=== PATIENT | female | born 1940 | race Caucasian/White ===

== ENCOUNTER 2019-06-07 15:32 | Inpatient (IN) | payer MEDICARE ==
[~2019-06-07] VITALS: Ht 157.5 cm; Wt 62.2 kg
[~2019-06-07 15:32] MED LIST: AMLO-97 PO; ATOR40TA69 PO; BETH25 PO; CARV3.12 PO; ESTR-7 PO; FERS325 PO; FOLI0.8C PO; GLUC1CAP36 PO; LEVO75TA6 PO; OMEP-50 PO
[2019-06-07 16:31] LABS: BASOPHILS % (AUTO) 0.5 % (0.0-5.0); EOSINOPHILS % (AUTO) 1.1 % (0.0-8.0); LYMPHOCYTES % (AUTO) 13.2 % (21.0-51.0); MEAN CORPUSCULAR HGB CONC 32.7 g/dL (32.0-36.0); MEAN CORPUSCULAR VOLUME 94.8 fL (79-99); MONOCYTES % (AUTO) 11.7 % (3.0-13.0); NEUTROPHILS % (AUTO) 73.5 % (40.0-77.0); NUCLEATED RED BLOOD CELLS 0.1 % (0.0-0.19); PLATELET COUNT (AUTO) 218 K/uL (130-400); RED BLOOD CELL COUNT(AUTO) 2.19 MIL/uL (4.00-5.50); RED CELL DISTRIBUTION WIDTH 17.5 % (11.0-15.5)
[2019-06-07 16:41] LABS: CREATININE 0.8 mg/dL (0.5-1.5); POTASSIUM 4.1 mmol/L (3.5-5.1)
[2019-06-07 16:46] LABS: ALBUMIN 3.4 g/dL (3.5-5.0); BILIRUBIN,TOTAL 0.2 mg/dL (0.2-1.0); TOTAL PROTEIN, SERUM 5.7 g/dL (6.0-8.3)
[2019-06-07 16:52] LABS: HEMATOCRIT 20.8 % (36-48)
[2019-06-07 16:56] LABS: INR 0.96 (0.85-1.15); PARTIAL THROMBOPLASTIN TIME 26.1 SEC (26.3-35.5); PROTHROMBIN TIME 10.1 SEC (9.6-11.6)
[2019-06-07] MEDS ORDERED: SODIUM CHLORIDE 0.9% 250 ML IV ONE (18:41)
[2019-06-07] MEDS ORDERED: VWF IV ONE (20:45)
[2019-06-07] MEDS ORDERED: ANTIHEMOPHILIC FACTOR IV ONE (20:45)
[2019-06-08] VITALS (7 sets, daily range): BP systolic 116–137; BP diastolic 47–74
[2019-06-08 00:11] LABS: BASOPHILS % (AUTO) 0.5 % (0.0-5.0); EOSINOPHILS % (AUTO) 1.4 % (0.0-8.0); LYMPHOCYTES % (AUTO) 17.5 % (21.0-51.0); MEAN CORPUSCULAR HEMOGLOBIN 30.3 pg (27.0-33.0); MEAN CORPUSCULAR HGB CONC 33.8 g/dL (32.0-36.0); MEAN CORPUSCULAR VOLUME 89.8 fL (79-99); MONOCYTES % (AUTO) 12.5 % (3.0-13.0); NEUTROPHILS % (AUTO) 68.1 % (40.0-77.0); NUCLEATED RED BLOOD CELLS 0.1 % (0.0-0.19); PLATELET COUNT (AUTO) 238 K/uL (130-400); RED BLOOD CELL COUNT(AUTO) 3.45 MIL/uL (4.00-5.50); RED CELL DISTRIBUTION WIDTH 17.8 % (11.0-15.5); WHITE BLOOD COUNT (AUTO) 8.3 K/uL (4.8-10.8)
[2019-06-08] MEDS ORDERED: SODIUM CHLORIDE 0.9% 1000ML 1,000 ML IV ONE (06:25)
[2019-06-08] MEDS ORDERED: ONDANSETRON HCL 4 MG/2 ML VIAL IV PRN (06:45)
[2019-06-08] MEDS ORDERED: HYDRALAZINE HCL 20 MG/ML VIAL IV PRN (06:45)
[2019-06-08] MEDS ORDERED: ACETAMINOPHEN 325 MG TAB PO PRN ×2 (06:45)
[2019-06-08] MEDS ORDERED: DESMOPRESSIN ACETATE 4 MCG/ML 20 MCG in SODIUM CHLORIDE 0.9% 50 ML IJ SCH (08:30)
[2019-06-08 08:46] LABS: HEMATOCRIT 29.6 % (36-48)
[2019-06-08] MEDS: FAMOTIDINE/PF 20 MG/2 ML VIAL IV SCH ×2 (08:57→21:02)
[2019-06-08] MEDS ORDERED: FAMOTIDINE/PF 20 MG/2 ML VIAL IV ONE (08:59)
[2019-06-08] MEDS ORDERED: albuterol IH (10:05)
[2019-06-08] MEDS ORDERED: MULT1TAB70 PO (10:05)
[2019-06-08] MEDS ORDERED: BENA40TA9 PO (10:05)
[2019-06-08] MEDS ORDERED: TRAM50TA4 PO (10:05)
[2019-06-08] MEDS ORDERED: MECL12.585 PO (10:05)
[2019-06-08] MEDS ORDERED: AMLO10TA7 PO (10:05)
[2019-06-08] MEDS ORDERED: LORA-705 PO (10:05)
[2019-06-08] MEDS: AMINOCAPROIC ACID 500 MG TABLET PO SCH ×4 (13:39→21:02)
--- NOTE | 2019-06-08 15:35 | NUR ---
CONSULT SPOKE TO CONG FROM DR PERERA'S OFFICE; GAVE HER ALL PATIENT INFO; STATED SHE WILL LET DR PERERA KNOW
[2019-06-08] MEDS ORDERED: LACTULOSE 20 GM/30 ML UDCUP PO SCH ×2 (18:25→19:20)
[2019-06-08] MEDS ORDERED: PEG 3350/NA SULF,BICARB,CL/KCL 4000 ML SOLN PO ONE (18:30)
[2019-06-08] MEDS ORDERED: MAGNESIUM CITRATE 296 ML SOLUTION PO ONE (18:30)
--- NOTE | 2019-06-08 20:30 | NUR ---
ASSESSMENT: PT AAOX4, PLEASANT, COOPERATIVE, FOLLOWING COMMANDS AND RESPONDS APPROPRIATELY. BMX1 NOTED WITH LOOSES FECES AND RED/BLACK LIQUID NOTED. BSC AT BEDSIDE, CALLBELL WITHIN REACH. ASSESSMENT COMPLETED, SEE FLOW SHEET. WHITE BOARD UP-DATED. BEDSIDE MONITOR PARAMETERS REVIEWED AND SET. CALLBELL REVIEWED AND WITHIN REACH.
--- NOTE | 2019-06-08 21:00 | NUR ---
DR TREVER PERERA INTO SEE PT, SEE ORDERS.
--- NOTE | 2019-06-08 22:04 | NUR ---
REPORT REPORT GIVEN TO FRANCIS WHITE, ORDERS ENDORSED. PT TRANSFERRED VIA BED TO ROOM 220
[2019-06-08 22:31] LABS: HEMATOCRIT 28.4 % (36-48)
[2019-06-08] MEDS ORDERED: SODIUM CHLORIDE 0.9% 1000ML 2,000 ML IV ONE (22:44)
[2019-06-08] MEDS: SODIUM CHLORIDE 0.9% 1000ML 1,000 ML IV SCH (22:55)
[2019-06-08] MEDS: METOPROLOL TARTRATE 1 MG/ML 5ML VIAL IV SCH (22:56)
--- NOTE | 2019-06-08 23:09 | NUR ---
SVT EPISODE [address] Johnson notified of patient going into SVT rate of 150. IV fluids ordered and metoprolol scheduled for patient. Patient was transferred to room 220 from 219 and had a large [facility] X2.H&H samara at this time. Patient alert and oriented, able to walk around the room; however, reminded to use the call light to let staff help with transferring to commode due to risk of falls. Patient agreed and demonstrated use of call light.
[2019-06-09] VITALS (15 sets, daily range): BP systolic 105–131; BP diastolic 51–82
[2019-06-09 03:47] LABS: BASOPHILS % (AUTO) 0.3 % (0.0-5.0); EOSINOPHILS % (AUTO) 0.6 % (0.0-8.0); LYMPHOCYTES % (AUTO) 17.6 % (21.0-51.0); MEAN CORPUSCULAR HEMOGLOBIN 30.9 pg (27.0-33.0); MEAN CORPUSCULAR HGB CONC 34.1 g/dL (32.0-36.0); MEAN CORPUSCULAR VOLUME 90.7 fL (79-99); MONOCYTES % (AUTO) 11.6 % (3.0-13.0); NEUTROPHILS % (AUTO) 69.9 % (40.0-77.0); PLATELET COUNT (AUTO) 213 K/uL (130-400); RED BLOOD CELL COUNT(AUTO) 2.54 MIL/uL (4.00-5.50); RED CELL DISTRIBUTION WIDTH 18.2 % (11.0-15.5); WHITE BLOOD COUNT (AUTO) 6.7 K/uL (4.8-10.8)
[2019-06-09 04:08] LABS: ALBUMIN 2.6 g/dL (3.5-5.0); CREATININE 0.4 mg/dL (0.5-1.5); MAGNESIUM 1.7 mg/dL (1.80-2.40); PHOSPHORUS 2.6 mg/dL (2.5-4.9)
[2019-06-09 04:19] LABS: POTASSIUM 2.9 mmol/L (3.5-5.1)
[2019-06-09] MEDS ORDERED: LIDOCAINE HCL-MPF 1% 2ML VIAL IV PRN (04:30)
[2019-06-09] MEDS ORDERED: POTASSIUM CHLORIDE 20MEQ/100ML 100 ML IV ONE (04:47)
[2019-06-09] MEDS: METOPROLOL TARTRATE 1 MG/ML 5ML VIAL IV SCH ×3 (04:57→17:59)
[2019-06-09] MEDS: POTASSIUM CHLORIDE 20MEQ/100ML 100 ML IV PRN ×2 (04:57→06:17)
[2019-06-09] MEDS: SODIUM CHLORIDE 0.9% 1000ML 1,000 ML IV SCH (04:58)
[2019-06-09] MEDS: FAMOTIDINE/PF 20 MG/2 ML VIAL IV SCH (08:20)
[2019-06-09 10:17] LABS: HEMATOCRIT 24.6 % (36-48)
[2019-06-09] MEDS ORDERED: MIDAZOLAM HCL 1 MG/ML 2ML VIAL ONE (14:19)
[2019-06-09] MEDS ORDERED: FENTANYL CITRATE PF 50 MCG/1 ML 2ML VIAL ONE (14:19)
[2019-06-09] MEDS ORDERED: FERROUS SULFATE 325 MG TABLET.DR PO SCH (17:00)
--- NOTE | 2019-06-09 17:32 | NUR ---
MS PLAN VISITED WITH PATIENT. PATIENT LIVES WITH SPOUSE. INDEPENDENT ABLE TO PERFORM ADL'S. PATIENT HAS NO SERVICES OR DME'S. FEELS SAFE TO RETURN HOME. PER PATIENT DOES NOT WANT COLONOSCOPY HAD ONE ON THE AT [facility]. PER DR. GUTIERREZ WANTS TO MAKE SURE DR. RUBIN OKAY TO MS HOME. CALLED DR. RUBIN SAID WOULD BE BY TO SEE PATIENT IN 1 TO 2 HRS. Addendum: 06/09/19 at 1735 by JARED HERNANDEZ RN CM Amended: Links added.
[2019-06-09] MEDS ORDERED: ATORVASTATIN CALCIUM 40 MG TABLET PO SCH (21:00)
[2019-06-09] MEDS ORDERED: CARVEDILOL 3.125 MG TABLET PO SCH (21:00)
[2019-06-10] MEDS ORDERED: LEVOTHYROXINE 75 MCG TABLET PO SCH (06:30)
[2019-06-10] MEDS ORDERED: FOLIC ACID 1 MG TABLET PO SCH (09:00)
== END 2019-06-09 19:05 | disposition home or self-care (01) | DRG 378 ==
LOC: EDH 15:32 → EDHIP 06-08 06:45 → 2CH 06-08 09:28 → 2DH 06-08 21:40
PROVIDERS: ADMIT Internal Medicine; ATTEND Internal Medicine
PROC: 30233N1 Transfusion of Nonautologous Red Blood Cells into Peripheral Vein, Percutaneous Approach (ICD-10-PCS; principal; 2019-06-09)
PROC: 0DJD8ZZ Inspection of Lower Intestinal Tract, Via Natural or Artificial Opening Endoscopic (ICD-10-PCS; 2019-06-09)
DX: K92.2 Gastrointestinal hemorrhage, unspecified (principal); D62 Acute posthemorrhagic anemia; D68.0 Von Willebrand disease; E03.9 Hypothyroidism, unspecified; E78.5 Hyperlipidemia, unspecified; I10 Essential (primary) hypertension; E87.6 Hypokalemia; Z96.653 Presence of artificial knee joint, bilateral; Z96.643 Presence of artificial hip joint, bilateral; K64.0 First degree hemorrhoids; Z88.8 Allergy status to other drugs, medicaments and biological substances; Z83.3 Family history of diabetes mellitus; Z82.5 Family history of asthma and other chronic lower respiratory diseases; Z82.49 Family history of ischemic heart disease and other diseases of the circulatory system; Z82.0 Family history of epilepsy and other diseases of the nervous system
CPT/HCPCS: 36415; 36430; 45378; 80048; 80053; 82040; 83735; 84100; 85014; 85018; 85025; 85610; 85730; 86850; 86900; 86901; 86922; 99152; 99153; 99291; A4606; G0378; J2250; J2597; J3010; J3480; J3490; J7030; P9016

== ENCOUNTER 2019-07-18 17:48 | Inpatient (IN) | payer MEDICARE ==
[~2019-07-18] VITALS: Ht 157.5 cm; Wt 58.0 kg
[~2019-07-18 17:48] MED LIST changes: -AMLO-97 PO; +AMLO10TA7 PO; +BENA40TA9 PO; +LORA-705 PO; +MECL12.585 PO; +MULT1TAB70 PO; -OMEP-50 PO; +TRAM50TA4 PO; +albuterol IH
[2019-07-18 18:57] LABS: BASOPHILS % (AUTO) 1.6 % (0.0-5.0); EOSINOPHILS % (AUTO) 1.8 % (0.0-8.0); HEMATOCRIT 25.3 % (36-48); LYMPHOCYTES % (AUTO) 8.4 % (21.0-51.0); MEAN CORPUSCULAR HGB CONC 32.6 g/dL (32.0-36.0); MONOCYTES % (AUTO) 10.1 % (3.0-13.0); NEUTROPHILS % (AUTO) 78.1 % (40.0-77.0); PLATELET COUNT (AUTO) 355 K/uL (130-400); RED BLOOD CELL COUNT(AUTO) 2.76 MIL/uL (4.00-5.50); RED CELL DISTRIBUTION WIDTH 15.6 % (11.0-15.5)
[2019-07-18 19:03] LABS: INR 0.95 (0.85-1.15); PARTIAL THROMBOPLASTIN TIME 30.2 SEC (26.3-35.5)
[2019-07-18 19:12] LABS: CREATININE 0.9 mg/dL (0.5-1.5); POTASSIUM 4.5 mmol/L (3.5-5.1)
[2019-07-18] MEDS ORDERED: DiphenhydrAMINE HCL 50 MG/ML VIAL IVP SCH (20:15)
[2019-07-18] MEDS ORDERED: DEXAMETHASONE SOD PHOSPHATE 10MG/ML 1ML VIAL IV SCH (20:15)
[2019-07-18] MEDS ORDERED: AMINOCAPROIC ACID IV SCH (20:15)
[2019-07-18] MEDS ORDERED: MORPHINE SULFATE 2 MG/ML 1ML SYG IVP PRN (20:15)
[2019-07-18] MEDS ORDERED: DEXTROSE 5% IV SCH (20:15)
[2019-07-18] MEDS ORDERED: PHARMACY COMMUNICATION MISC SCH (20:15)
[2019-07-18] MEDS ORDERED: ONDANSETRON HCL 4 MG/2 ML VIAL IVP PRN (20:15)
[2019-07-18] MEDS ORDERED: WATER IV SCH (20:15)
[2019-07-18] MEDS ORDERED: SODIUM CHLORIDE 0.9% 1000ML 1,000 ML IV ONE (20:58)
[2019-07-18 22:00] VITALS: BP 121/47
[2019-07-18] MEDS: SODIUM CHLORIDE 0.9% 1000ML 1,000 ML IV SCH (22:00)
[2019-07-19] VITALS (7 sets, daily range): BP systolic 91–129; BP diastolic 47–74
[2019-07-19 05:19] LABS: MEAN CORPUSCULAR HEMOGLOBIN 29.3 pg (27.0-33.0); MEAN CORPUSCULAR VOLUME 91.7 fL (79-99); PLATELET COUNT (AUTO) 281 K/uL (130-400); RED CELL DISTRIBUTION WIDTH 15.4 % (11.0-15.5); WHITE BLOOD COUNT (AUTO) 5.2 K/uL (4.8-10.8)
[2019-07-19 05:50] LABS: HEMATOCRIT 19.2 % (36-48)
[2019-07-19] MEDS: SODIUM CHLORIDE 0.9% 1000ML 1,000 ML IV SCH ×3 (06:15→21:48)
[2019-07-19] MEDS ORDERED: DEXAMETHASONE 10MG/ML 1ML VIAL 10 MG in SODIUM CHLORIDE 0.9% 50 ML IV SCH (06:30)
[2019-07-19] MEDS: DiphenhydrAMINE HCL 50 MG/ML VIAL IV SCH (06:57)
[2019-07-19] MEDS: PANTOPRAZOLE 40 MG/VIAL IVP SCH (10:13)
--- NOTE | 2019-07-19 14:41 | NUR ---
DCP CM met with pt discussed dc plans. Pt is independent prior to admission, lives at home w/spouse. Denies any equipments/services. Feels safe to go back home, spouse able to assist with transportation and needs as necessary. DC plan to home once stable. CM to cont to follow up. Addendum: 07/19/19 at 1442 by KAVITA BRODY LVN CM Amended: Links added.
--- NOTE | 2019-07-19 20:15 | NUR ---
GI BLEEDING SCAN CALLED THE RADIOLOGY SPOKE WITH STAFF FEMALE, SHE TOLE ME TO DIAL EXT 1083 FOR NUCLEAR MEDICINE TO CONFIRM IF THEY COULD DO THE GI BLEEDING SCAN TODAY, MULTIPLE ATTEMPTS DIALING THE 1083 BUT NO ONE ANSWER, WILL TRY AGAIN LATER
--- NOTE | 2019-07-19 20:17 | NUR ---
2000 BLOOD TRANSFUSION COMPLETED BLOOD TRANSFUSION COMPLETED, VITAL SIGNS PLEASE SEE VS CHART. NO S/SX OF TRANSFUSION REACTION. ONITORED CONTINUOUSLY COMFORT MEASURED RENDERED
--- NOTE | 2019-07-19 21:27 | NUR ---
SPOKE WITH SI FROM RADIOLOGY TO CONFIRM AGAIN IF RADIOLOGY OR NUCLEAR MEDICINE IS THE ONE WHO IS DOING THE GI BLEEDING SCAN. ACCORDING TO SI, IT IS THE NUCLEAR MEDICINE, ATTEMPTED TO CALL THE NUCLEAR MEDICINE AGAIN, NO ONE IS ANSWERINGM WILL TRY TO CALL AGAIN LATER
[2019-07-20 03:04] VITALS: BP 122/70
[2019-07-20 05:12] LABS: MEAN CORPUSCULAR HEMOGLOBIN 30.5 pg (27.0-33.0); MEAN CORPUSCULAR HGB CONC 33.2 g/dL (32.0-36.0); MEAN CORPUSCULAR VOLUME 91.9 fL (79-99); PLATELET COUNT (AUTO) 276 K/uL (130-400); RED BLOOD CELL COUNT(AUTO) 1.91 MIL/uL (4.00-5.50); RED CELL DISTRIBUTION WIDTH 15.3 % (11.0-15.5); WHITE BLOOD COUNT (AUTO) 8.3 K/uL (4.8-10.8)
[2019-07-20 05:19] LABS: HEMATOCRIT 17.6 % (36-48)
--- NOTE | 2019-07-20 05:45 | NUR ---
HEMOGLOBIN AND HEMATOCRIT RESULT SPOKE WITH DOCTOR CARYN, INFORMED MD ABOUT hemoglobin of 5.8 hematocrit of 17.6, WITH MINIMAL BLOOD IN THE STOOL BUT PT DENIED ANY DYSPNEA NOR CHEST PAIN NOR DIZZINESS NOR DROWSINESS. MD RUBIN ORDERED 2 UNITS OF PRBC NOW, TO PRE MEDICATE PATIENT WITH BENADRYL.
--- NOTE | 2019-07-20 05:50 | NUR ---
SPOKE WITH JESSICA IN THE LABORATORY, INFORMED HER THAT MD ORDERED STAT PRBC 2 UNITS , SHE SAID SHE WILL CALL BACK ONCE BLOOD IS READY PENDING
[2019-07-20] MEDS ORDERED: DEXAMETHASONE SOD PHOSPHATE 4 MG/ML 1ML VIAL ONE (06:28)
[2019-07-20] MEDS ORDERED: SODIUM CHLORIDE 0.9% 250 ML IV ONE (06:28)
[2019-07-20] MEDS ORDERED: DEXAMETHASONE 10MG/ML 1ML VIAL 0 MG in SODIUM CHLORIDE 0.9% 50 ML IV SCH (06:30)
--- NOTE | 2019-07-20 06:30 | NUR ---
BLOOD TRANSFUSION HAS BEEN STARTED. NO S/SX OF TRANSFUSION REACTION FOR NOW. PRE MEDICATE PATIENT WITH DEXAMETHASONE AND BENADRYL IV ORDERED BY MD RUBIN, MONITORED ACCORDINGLY
[2019-07-20] MEDS: DiphenhydrAMINE HCL 50 MG/ML VIAL IV SCH (06:39)
[2019-07-20] MEDS ORDERED: DEXAMETHASONE 10MG/ML 1ML VIAL 10 MG in SODIUM CHLORIDE 0.9% 50 ML IV SCH (07:00)
[2019-07-20 08:00] VITALS: BP 140/82
[2019-07-20 08:18] LABS: INR 1.02 (0.85-1.15); PARTIAL THROMBOPLASTIN TIME 25.3 SEC (26.3-35.5); PROTHROMBIN TIME 10.5 SEC (9.6-11.6)
[2019-07-20] MEDS: PANTOPRAZOLE 40 MG/VIAL IVP SCH (09:35)
[2019-07-20 12:00] VITALS: BP 96/52
[2019-07-20] MEDS: AMINOCAPROIC ACID 500 MG TABLET PO SCH ×7 (14:30→22:26)
[2019-07-20 15:51] VITALS: BP 110/57
[2019-07-20] MEDS: SODIUM CHLORIDE 0.9% 1000ML 1,000 ML IV SCH ×2 (18:11→22:26)
[2019-07-20 19:05] VITALS: BP 112/61
[2019-07-20] MEDS ORDERED: AMINOCAPROIC ACID 500 MG TABLET PO ONE (22:26)
[2019-07-20 23:00] VITALS: BP 104/54
[2019-07-21 03:47] VITALS: BP 102/55
[2019-07-21] MEDS: DiphenhydrAMINE HCL 50 MG/ML VIAL IV SCH (06:30)
[2019-07-21 07:41] LABS: HEMATOCRIT 24.8 % (36-48); MEAN CORPUSCULAR HEMOGLOBIN 30.2 pg (27.0-33.0); MEAN CORPUSCULAR HGB CONC 32.8 g/dL (32.0-36.0); NUCLEATED RED BLOOD CELLS 0.1 % (0.0-0.19); PLATELET COUNT (AUTO) 170 K/uL (130-400); RED BLOOD CELL COUNT(AUTO) 2.69 MIL/uL (4.00-5.50); RED CELL DISTRIBUTION WIDTH 16.1 % (11.0-15.5); WHITE BLOOD COUNT (AUTO) 11.5 K/uL (4.8-10.8)
[2019-07-21 08:00] VITALS: BP 122/58
[2019-07-21] MEDS: SODIUM CHLORIDE 0.9% 1000ML 1,000 ML IV SCH ×2 (08:41→17:33)
[2019-07-21] MEDS: PANTOPRAZOLE 40 MG/VIAL IVP SCH (08:42)
[2019-07-21] MEDS ORDERED: PHARMACY COMMUNICATION MISC SCH (10:00)
[2019-07-21 11:28] VITALS: BP 108/58
[2019-07-21] MEDS ORDERED: VWF IV ONE ×2 (11:30→21:00)
[2019-07-21] MEDS ORDERED: ANTIHEMOPHILIC FACTOR IV ONE ×2 (11:30→21:00)
[2019-07-21 15:45] VITALS: BP 91/51
[2019-07-21 19:30] VITALS: BP 94/57
[2019-07-21 23:52] VITALS: BP 108/64
[2019-07-22] MEDS: SODIUM CHLORIDE 0.9% 1000ML 1,000 ML IV SCH (02:44)
[2019-07-22 03:30] VITALS: BP 112/60
[2019-07-22] MEDS: DiphenhydrAMINE HCL 50 MG/ML VIAL IV SCH (05:20)
[2019-07-22 05:22] LABS: BASOPHILS % (AUTO) 0.1 % (0.0-5.0); EOSINOPHILS % (AUTO) 0.5 % (0.0-8.0); HEMATOCRIT 24.3 % (36-48); LYMPHOCYTES % (AUTO) 17.8 % (21.0-51.0); MEAN CORPUSCULAR HEMOGLOBIN 29.9 pg (27.0-33.0); MEAN CORPUSCULAR HGB CONC 32.7 g/dL (32.0-36.0); MEAN CORPUSCULAR VOLUME 91.6 fL (79-99); NEUTROPHILS % (AUTO) 70.6 % (40.0-77.0); NUCLEATED RED BLOOD CELLS 0.2 % (0.0-0.19); PLATELET COUNT (AUTO) 359 K/uL (130-400); RED BLOOD CELL COUNT(AUTO) 2.66 MIL/uL (4.00-5.50); RED CELL DISTRIBUTION WIDTH 16.1 % (11.0-15.5); WHITE BLOOD COUNT (AUTO) 8.6 K/uL (4.8-10.8)
[2019-07-22 08:00] VITALS: BP 120/70
[2019-07-22] MEDS: PANTOPRAZOLE 40 MG/VIAL IVP SCH (09:03)
--- NOTE | 2019-07-22 12:18 | NUR ---
Discharge orders written by Dr. Zhu, who told primary nurse that he is rounding for Dr. Aguila today. Call placed to Dr. Aguila to verify; he stated may be discharged per Dr. Zhu's order but notify Dr. Baca, who is actually conveyor console operator today. Message left on Dr. Baca's voice mail requesting call back.
--- NOTE | 2019-07-22 12:50 | NUR ---
DISCHARGE DISCHARGE INSTRUCTIONS GIVEN TO PATIENT AND SPOUSE, MADE AWARE OF NEED TO FOLLOW UP WITH PCP DR. LOPEZ AND DR. RUBIN IN ONE WEEK. AT THIS TIME PATIENT AAOX4, DENIES ANY PAIN NO S+S OF ACUTE DISTRESS NOTED. NO BLEEDING NOTED. ALL QUESTIONS ANSWERED. TO BE TRANSPORTED HOME BY SPOUSE
== END 2019-07-22 13:10 | disposition home or self-care (01) | DRG 378 ==
LOC: EDH 17:48 → EDHIP 18:57 → 3DH 20:47
PROVIDERS: ADMIT Internal Medicine; ATTEND Internal Medicine
PROC: 30233K1 Transfusion of Nonautologous Frozen Plasma into Peripheral Vein, Percutaneous Approach (ICD-10-PCS; principal; 2019-07-19)
PROC: 30233N1 Transfusion of Nonautologous Red Blood Cells into Peripheral Vein, Percutaneous Approach (ICD-10-PCS; 2019-07-19)
DX: K92.2 Gastrointestinal hemorrhage, unspecified (principal); D68.0 Von Willebrand disease; I10 Essential (primary) hypertension; E03.9 Hypothyroidism, unspecified; D64.9 Anemia, unspecified; E78.5 Hyperlipidemia, unspecified; M19.90 Unspecified osteoarthritis, unspecified site; R13.10 Dysphagia, unspecified; Z87.01 Personal history of pneumonia (recurrent); Z88.1 Allergy status to other antibiotic agents; Z88.8 Allergy status to other drugs, medicaments and biological substances; K55.20 Angiodysplasia of colon without hemorrhage
CPT/HCPCS: 36415; 36430; 78278; 80048; 82270; 85025; 85027; 85060; 85610; 85730; 86850; 86900; 86901; 86922; 86927; A9512; C9113; G0378; J1100; J1200; J3490; J7030; J7060; P9016; P9017

== ENCOUNTER 2019-12-27 14:07 | Emergency (ER) | payer MEDICARE ==
[~2019-12-27 14:07] MED LIST changes: +AMLO-258 PO; -AMLO10TA7 PO; -MECL12.585 PO; +MULT-660 PO; -MULT1TAB70 PO
[2019-12-27 14:46] LABS: BASOPHILS % (AUTO) 0.3 % (0.0-5.0); EOSINOPHILS % (AUTO) 0.2 % (0.0-8.0); LYMPHOCYTES % (AUTO) 16.1 % (21.0-51.0); MEAN CORPUSCULAR VOLUME 96.8 fL (79-99); MONOCYTES % (AUTO) 8.2 % (3.0-13.0); NEUTROPHILS % (AUTO) 74.8 % (40.0-77.0); PLATELET COUNT (AUTO) 260 K/uL (130-400); WHITE BLOOD COUNT (AUTO) 9.8 K/uL (4.8-10.8)
[2019-12-27 14:59] LABS: CREATININE 0.9 mg/dL (0.5-1.5); POTASSIUM 4.7 mmol/L (3.5-5.1)
[2019-12-27 15:01] LABS: INR 0.96 (0.85-1.15); PARTIAL THROMBOPLASTIN TIME 27.3 SEC (26.3-35.5); PROTHROMBIN TIME 10.4 SEC (9.6-11.6)
[2019-12-27 15:03] LABS: ALBUMIN 3.7 g/dL (3.5-5.0); BILIRUBIN,TOTAL 0.4 mg/dL (0.2-1.0); TOTAL PROTEIN, SERUM 6.4 g/dL (6.0-8.3)
== END 2019-12-27 16:35 | disposition home or self-care (01) ==
LOC: EDH 14:07
DX: K62.5 Hemorrhage of anus and rectum (principal); I10 Essential (primary) hypertension; Z90.49 Acquired absence of other specified parts of digestive tract; Z88.1 Allergy status to other antibiotic agents; Z88.8 Allergy status to other drugs, medicaments and biological substances
CPT/HCPCS: 36415; 80053; 82270; 85025; 85610; 85730

== ENCOUNTER 2019-12-28 12:48 | Inpatient (IN) | payer MEDICARE ==
[~2019-12-28] VITALS: Ht 157.5 cm; Wt 59.7 kg
[2019-12-28] MEDS ORDERED: CEFTRIAXONE SODIUM 2 GM VIAL ONE (13:18)
[2019-12-28 13:19] LABS: BASOPHILS % (AUTO) 0.2 % (0.0-5.0); EOSINOPHILS % (AUTO) 0.1 % (0.0-8.0); LYMPHOCYTES % (AUTO) 7.3 % (21.0-51.0); MEAN CORPUSCULAR HGB CONC 32.4 g/dL (32.0-36.0); MEAN CORPUSCULAR VOLUME 98.9 fL (79-99); MONOCYTES % (AUTO) 7.7 % (3.0-13.0); NEUTROPHILS % (AUTO) 83.3 % (40.0-77.0); PLATELET COUNT (AUTO) 205 K/uL (130-400); RED BLOOD CELL COUNT(AUTO) 1.78 MIL/uL (4.00-5.50); RED CELL DISTRIBUTION WIDTH 14.3 % (11.0-15.5); WHITE BLOOD COUNT (AUTO) 16.9 K/uL (4.8-10.8)
[2019-12-28 13:25] LABS: HEMATOCRIT 17.6 % (36-48)
[2019-12-28 13:28] LABS: CARBON DIOXIDE 21 mmol/L (21-32); CHLORIDE 99 mmol/L (101-111); CREATININE 1.1 mg/dL (0.5-1.5); GLOMERULAR FILTR. RATE CALC 51 mL/min (>60); GLUCOSE,RANDOM 94 mg/dL (70-105); POTASSIUM 4.3 mmol/L (3.5-5.1); SODIUM SERUM 132 mmol/L (136-145); UREA NITROGEN, BLOOD 30 mg/dL (7-18)
[2019-12-28 13:32] LABS: INR 1.02 (0.85-1.15); PARTIAL THROMBOPLASTIN TIME 22.2 SEC (26.3-35.5)
[2019-12-28 13:39] LABS: ALANINE AMINOTRANSFERASE 20 U/L (12-78); ALBUMIN 3.1 g/dL (3.5-5.0); ASPARTATE AMINOTRANSFERASE 22 U/L (10-37); BILIRUBIN,TOTAL 0.3 mg/dL (0.2-1.0); CREATINE KINASE, TOTAL 50 U/L (21-232); MYOGLOBIN 100 ng/mL (10-92); TOTAL PROTEIN, SERUM 5.1 g/dL (6.0-8.3); TROPONIN I < 0.04 ng/mL (0.00-0.06)
[2019-12-28] MEDS ORDERED: ONDANSETRON HCL 4 MG/2 ML VIAL IVP PRN (14:30)
[2019-12-28] MEDS ORDERED: ACETAMINOPHEN 325 MG TAB PO PRN (14:30)
[2019-12-28 16:42] LABS: APPEARANCE,URINE Clear (CLEAR); BILIRUBIN,URINE Negative (NEGATIVE); COLOR,URINE Yellow (YELLOW); GLUCOSE, URINE (UA) Negative (NEGATIVE); KETONES,URINE Negative (NEGATIVE); LEUKOCYTE ESTERASE ,URINE Small (NEGATIVE); NITRATE,URINE Negative (NEGATIVE); OCCULT BLOOD,URINE Large (NEGATIVE); PH,URINE 5.5 (5.0-8.0); PROTEIN,URINE Negative (NEGATIVE); UROBILINOGEN,URINE 0.2 mg/dL (0.2-1.0)
[2019-12-28 17:08] LABS: BACTERIA,URINE Few /HPF (None Seen)
[2019-12-28 17:09] LABS: MUCUS,URINE Few LPF (None Seen); SQUAMOUS EPITHELIAL CELL,UR Few /HPF (0-2)
[2019-12-28 18:00] VITALS: BP 117/57
[2019-12-28] MEDS: SODIUM CHLORIDE 0.9% 1000ML 1,000 ML IV SCH ×2 (18:22→23:45)
[2019-12-28 19:26] LABS: HEMATOCRIT 20.5 % (36-48)
[2019-12-28 19:36] VITALS: BP 97/48
[2019-12-28] MEDS ORDERED: PANTOPRAZOLE SODIUM 40 MG TABLET.DR PO SCH (21:00)
--- NOTE | 2019-12-28 21:30 | NUR ---
DR. TOD CEDENO CALLED DUE TO GI CONSULT. UPDATED ON PT STATUS. ORDERED GI BLEEDING SCAN. TOLD ABOUT PT REFUSING COLONOSCOPY. NOTIFIED OF 6.9 HG AFTER 1RBC. ORDERED FOR ONE RBC UNIT.
[2019-12-28] MEDS: ZOSYN 3.375GM+NS 50ML 50 ML IV SCH (21:46)
[2019-12-28] MEDS: PANTOPRAZOLE SODIUM 80 MG in SODIUM CHLORIDE 0.9% 100 ML IV SCH (21:46)
[2019-12-28 23:16] VITALS: BP 84/37
[2019-12-28] MEDS ORDERED: SODIUM CHLORIDE 0.9% 250 ML IV ONE (23:49)
[2019-12-29] VITALS (7 sets, daily range): BP systolic 95–128; BP diastolic 50–73
--- NOTE | 2019-12-29 | NUR ---
TRANSFUSION OF 1RBC STARTED AT THIS TIME. PT BP DECREASED, 80/40'S. THAT HAS BEEN PTS BASELINE. ORDER TO TRANSFER TO ICU IF SBP BELOW 80 SUSTAINING.
--- NOTE | 2019-12-29 03:15 | NUR ---
BLOOD TRANSFUSION COMPLETE AT THIS TIME. PT STABLE. BP SLIGHTLY INCREASED. NO DISTRESS NOTED. PT NOW ABLE TO AMBULATE.
[2019-12-29 04:03] LABS: BASOPHILS % (AUTO) 0.2 % (0.0-5.0); EOSINOPHILS % (AUTO) 0.2 % (0.0-8.0); LYMPHOCYTES % (AUTO) 14.1 % (21.0-51.0); MEAN CORPUSCULAR HEMOGLOBIN 29.2 pg (27.0-33.0); MEAN CORPUSCULAR VOLUME 88.5 fL (79-99); NEUTROPHILS % (AUTO) 71.1 % (40.0-77.0); PLATELET COUNT (AUTO) 155 K/uL (130-400); RED CELL DISTRIBUTION WIDTH 16.5 % (11.0-15.5); WHITE BLOOD COUNT (AUTO) 8.1 K/uL (4.8-10.8)
[2019-12-29 04:42] LABS: CREATININE 0.7 mg/dL (0.5-1.5)
[2019-12-29] MEDS: ZOSYN 3.375GM+NS 50ML 50 ML IV SCH ×3 (05:23→20:36)
[2019-12-29] MEDS: SODIUM CHLORIDE 0.9% 1000ML 1,000 ML IV SCH (10:30)
--- NOTE | 2019-12-29 11:43 | NUR ---
cm note spoke to pt and states resides at home with spouse independent with adls and ambulation, no dme. no services. spouse transports to [place] etc as needed. feels safe to [place] back [place]. states no dc needs. Addendum: 12/29/19 at 1146 by KIKO MILLER CM Amended: Links added.
[2019-12-29] MEDS ORDERED: VANCOMYCIN PROTOCOL PER PHARMACY IV PRN (13:00)
[2019-12-29] MEDS: PANTOPRAZOLE SODIUM 80 MG in SODIUM CHLORIDE 0.9% 100 ML IV SCH ×2 (13:05→23:19)
[2019-12-29] MEDS ORDERED: VWF IV SCH (13:30)
[2019-12-29] MEDS ORDERED: ANTIHEMOPHILIC FACTOR IV SCH (13:30)
[2019-12-29 13:34] LABS: HEMATOCRIT 22.8 % (36-48)
[2019-12-29] MEDS: VANCOMYCIN 1GM+NS 250ML 250 ML IV SCH (17:14)
[2019-12-29] MEDS: AMINOCAPROIC ACID 500 MG TABLET PO SCH ×4 (18:02→23:16)
--- NOTE | 2019-12-29 18:09 | NUR ---
DR. RUBIN ROUNDED. AWARE HUMATE P NOT AVAILABLE PER PHARMACY. FIRST DOSE OF AMICAR GIVEN. REPEAT CBC IN AM
[2019-12-29 21:21] LABS: HEMATOCRIT 21.2 % (36-48)
[2019-12-30] MEDS: AMINOCAPROIC ACID 500 MG TABLET PO SCH ×2 (00:12→01:30)
[2019-12-30] MEDS: SODIUM CHLORIDE 0.9% 1000ML 1,000 ML IV SCH ×3 (00:16→16:30)
[2019-12-30] MEDS: VANCOMYCIN 1GM+NS 250ML 250 ML IV SCH ×2 (00:48→12:45)
[2019-12-30 04:04] VITALS: BP 104/55
[2019-12-30] MEDS: ZOSYN 3.375GM+NS 50ML 50 ML IV SCH ×3 (04:19→20:44)
[2019-12-30 04:51] LABS: % IRON SATURATION 3.7 % (22-44)
[2019-12-30 05:09] LABS: BASOPHILS % (AUTO) 0.2 % (0.0-5.0); EOSINOPHILS % (AUTO) 0.9 % (0.0-8.0); LYMPHOCYTES % (AUTO) 12.9 % (21.0-51.0); MEAN CORPUSCULAR HEMOGLOBIN 30.1 pg (27.0-33.0); MEAN CORPUSCULAR HGB CONC 32.5 g/dL (32.0-36.0); MEAN CORPUSCULAR VOLUME 92.8 fL (79-99); MONOCYTES % (AUTO) 10.8 % (3.0-13.0); NEUTROPHILS % (AUTO) 74.5 % (40.0-77.0); PLATELET COUNT (AUTO) 149 K/uL (130-400); RED BLOOD CELL COUNT(AUTO) 2.09 MIL/uL (4.00-5.50); RED CELL DISTRIBUTION WIDTH 18.6 % (11.0-15.5); WHITE BLOOD COUNT (AUTO) 8.1 K/uL (4.8-10.8)
[2019-12-30 05:14] LABS: HEMATOCRIT 19.4 % (36-48)
[2019-12-30] MEDS ORDERED: ACETAMINOPHEN 325 MG TAB PO SCH (06:45)
[2019-12-30] MEDS ORDERED: DIPHENHYDRAMINE HCL 25 MG CAPSULE PO SCH (06:45)
[2019-12-30 07:00] VITALS: BP 147/74
[2019-12-30] MEDS ORDERED: SODIUM CHLORIDE 0.9% 250 ML IV ONE (08:48)
[2019-12-30 11:00] VITALS: BP 110/52
[2019-12-30] MEDS ORDERED: COMPOUND IV MISC 1 EACH IVSOLN MISC PRN (11:15)
[2019-12-30 12:35] LABS: HEMATOCRIT 22.9 % (36-48); MEAN CORPUSCULAR HGB CONC 32.8 g/dL (32.0-36.0); MEAN CORPUSCULAR VOLUME 91.6 fL (79-99); NUCLEATED RED BLOOD CELLS 0.4 % (0.0-0.19); RED BLOOD CELL COUNT(AUTO) 2.5 MIL/uL (4.00-5.50); RED CELL DISTRIBUTION WIDTH 18.3 % (11.0-15.5); WHITE BLOOD COUNT (AUTO) 7.9 K/uL (4.8-10.8)
[2019-12-30] MEDS: IRON SUCROSE COMPLEX 100 MG in SODIUM CHLORIDE 0.9% 50 ML IV SCH (12:45)
[2019-12-30 15:00] VITALS: BP 124/61
[2019-12-30] MEDS: PANTOPRAZOLE SODIUM 80 MG in SODIUM CHLORIDE 0.9% 100 ML IV SCH (17:13)
[2019-12-30 19:30] VITALS: BP 120/57
[2019-12-30] MEDS ORDERED: ANTIHEMOPHILIC FACTOR IV ONE (20:00)
[2019-12-30] MEDS ORDERED: VWF IV ONE (20:00)
[2019-12-30] MEDS ORDERED: ANTIHEMOPHILIC FACTOR IV SCH (20:00)
[2019-12-30] MEDS ORDERED: VWF IV SCH (20:00)
[2019-12-30 23:12] VITALS: BP 129/71
[2019-12-31] MEDS: VANCOMYCIN 1GM+NS 250ML 250 ML IV SCH (01:10)
[2019-12-31 04:00] VITALS: BP 102/53
[2019-12-31] MEDS: ZOSYN 3.375GM+NS 50ML 50 ML IV SCH ×3 (04:31→20:36)
[2019-12-31] MEDS ORDERED: VANCOMYCIN PROTOCOL PER PHARMACY IV SCH (06:45)
[2019-12-31] MEDS ORDERED: COMPOUND IV REFRIGERATED 1 EACH IVSOLN MISC PRN (06:45)
[2019-12-31 07:41] LABS: MEAN CORPUSCULAR HEMOGLOBIN 29.4 pg (27.0-33.0); MEAN CORPUSCULAR HGB CONC 32.1 g/dL (32.0-36.0); MEAN CORPUSCULAR VOLUME 91.5 fL (79-99); NUCLEATED RED BLOOD CELLS 0.7 % (0.0-0.19); RED BLOOD CELL COUNT(AUTO) 2.11 MIL/uL (4.00-5.50); RED CELL DISTRIBUTION WIDTH 19.2 % (11.0-15.5); WHITE BLOOD COUNT (AUTO) 7.7 K/uL (4.8-10.8)
[2019-12-31] MEDS: IRON SUCROSE COMPLEX 100 MG in SODIUM CHLORIDE 0.9% 50 ML IV SCH (07:59)
[2019-12-31 08:00] VITALS: BP 101/55
[2019-12-31] MEDS: SODIUM CHLORIDE 0.9% 1000ML 1,000 ML IV SCH ×2 (08:20→12:30)
[2019-12-31 08:42] LABS: HEMATOCRIT 19.3 % (36-48)
--- NOTE | 2019-12-31 09:55 | NUR ---
HGB OF 6.3 , ONE UNIT OF BLOOD STARTED FOR COVERAGE , SEE TRANSFUSION FLOW SHEET FOR V/S AT PRESENT NO REACTION.
[2019-12-31 11:29] VITALS: BP 108/56
[2019-12-31] MEDS ORDERED: VANCOMYCIN 1.25 GM in SODIUM CHLORIDE 0.9% 250 ML IV SCH (13:00)
--- NOTE | 2019-12-31 13:00 | NUR ---
BLOOD TRANSFUSION COMPLETED ,WITH NO REACTION. SEE TRANSFUSION FLOW SHEET FOR V/S TOLERATE WELL.
[2019-12-31 16:00] VITALS: BP 118/57
[2019-12-31] MEDS: PANTOPRAZOLE SODIUM 80 MG in SODIUM CHLORIDE 0.9% 100 ML IV SCH (16:50)
[2019-12-31] MEDS: VANCOMYCIN 1.25 GM in SODIUM CHLORIDE 0.9% 250 ML IV SCH (17:02)
[2019-12-31 19:13] VITALS: BP 106/56
[2019-12-31 23:18] VITALS: BP 91/46
[2020-01-01] MEDS: PANTOPRAZOLE SODIUM 80 MG in SODIUM CHLORIDE 0.9% 100 ML IV SCH ×2 (03:30→17:59)
[2020-01-01 03:45] VITALS: BP 107/60
[2020-01-01 03:54] LABS: MEAN CORPUSCULAR HEMOGLOBIN 29.6 pg (27.0-33.0); MEAN CORPUSCULAR HGB CONC 32.2 g/dL (32.0-36.0); MEAN CORPUSCULAR VOLUME 92.1 fL (79-99); NUCLEATED RED BLOOD CELLS 0.9 % (0.0-0.19); PLATELET COUNT (AUTO) 146 K/uL (130-400); RED BLOOD CELL COUNT(AUTO) 1.89 MIL/uL (4.00-5.50); RED CELL DISTRIBUTION WIDTH 19.8 % (11.0-15.5); WHITE BLOOD COUNT (AUTO) 11.1 K/uL (4.8-10.8)
[2020-01-01 03:58] LABS: HEMATOCRIT 17.4 % (36-48)
[2020-01-01 04:02] LABS: BAND NEUTROPHILS % (MANUAL) 10 % (0-2); BASOPHILS % (MANUAL) 2 % (0-2); LYMPHOCYTES % (MANUAL) 11 % (22-44); MONOCYTES % (MANUAL) 2 % (2-9); SEGMENTED NEUTROPHILS % 75 % (40-70)
[2020-01-01 04:03] LABS: MAN.DIFF COMMENT-IMPRESSION MANUAL DIFFERENTIAL; PLATELET MORPHOLOGY COMMENT ADEQUATE
[2020-01-01 04:07] LABS: CREATININE 0.6 mg/dL (0.5-1.5); POTASSIUM 3.2 mmol/L (3.5-5.1)
[2020-01-01] MEDS: ZOSYN 3.375GM+NS 50ML 50 ML IV SCH ×3 (04:34→20:48)
[2020-01-01] MEDS: VANCOMYCIN 1.25 GM in SODIUM CHLORIDE 0.9% 250 ML IV SCH ×2 (04:35→17:46)
[2020-01-01] MEDS ORDERED: SODIUM CHLORIDE 0.9% 250 ML IV ONE (04:59)
--- NOTE | 2020-01-01 07:50 | NUR ---
BLOOD TRANSFUSION STARTED FOR A HGB OF 5.6 HCT OF 17.4 , SEE TRANSFUSION FLOW SHEET FOR STARTED V/S AND NOTED NO REACTION .EXPLAIN TO PT OF TRANSFUSION AND LAB RESULTS. CALL LIGHT IN REACH AD REVIEW RISK,
[2020-01-01 08:06] VITALS: BP 98/55
[2020-01-01] MEDS: SODIUM CHLORIDE 0.9% 1000ML 1,000 ML IV SCH ×2 (08:30→19:25)
[2020-01-01] MEDS: IRON SUCROSE COMPLEX 100 MG in SODIUM CHLORIDE 0.9% 50 ML IV SCH (09:24)
--- NOTE | 2020-01-01 09:30 | NUR ---
BLOOD TRANSFUSION COMPLETED WITH NO REACTION NOTED TOLERATE WELL. SEE TRANSFUSION FLOW SHEET FOR V/S .
[2020-01-01 10:56] VITALS: BP 118/66
[2020-01-01 15:31] VITALS: BP 143/78
[2020-01-01] MEDS ORDERED: TRAMADOL HCL 50 MG TABLET PO PRN (15:45)
[2020-01-01] MEDS ORDERED: POTASSIUM CHLORIDE 20 MEQ ERTAB PO SCH (15:45)
[2020-01-01] MEDS ORDERED: PREMC VG ×2 (15:49)
[2020-01-01 19:00] VITALS: BP 109/54
[2020-01-01 20:42] LABS: HEMATOCRIT 17.5 % (36-48)
[2020-01-01] MEDS: CARVEDILOL 3.125 MG TABLET PO SCH (20:48)
[2020-01-02] VITALS: BP 114/48
--- NOTE | 2020-01-02 00:30 | NUR ---
Transfusion started. No s/s of adverse reaction within the first 15 min. Will continue to monitor.
[2020-01-02] MEDS: PANTOPRAZOLE SODIUM 80 MG in SODIUM CHLORIDE 0.9% 100 ML IV SCH (02:10)
[2020-01-02 04:00] VITALS: BP 108/57
[2020-01-02] MEDS: SODIUM CHLORIDE 0.9% 1000ML 1,000 ML IV SCH ×2 (04:30→14:16)
[2020-01-02] MEDS: VANCOMYCIN 1.25 GM in SODIUM CHLORIDE 0.9% 250 ML IV SCH ×2 (05:00→17:32)
[2020-01-02 05:47] LABS: BASOPHILS % (AUTO) 0.3 % (0.0-5.0); EOSINOPHILS % (AUTO) 2.7 % (0.0-8.0); LYMPHOCYTES % (AUTO) 12.7 % (21.0-51.0); MEAN CORPUSCULAR HEMOGLOBIN 30.3 pg (27.0-33.0); MEAN CORPUSCULAR HGB CONC 32.8 g/dL (32.0-36.0); MEAN CORPUSCULAR VOLUME 92.3 fL (79-99); MONOCYTES % (AUTO) 12.4 % (3.0-13.0); NEUTROPHILS % (AUTO) 70.2 % (40.0-77.0); NUCLEATED RED BLOOD CELLS 1.6 % (0.0-0.19); PLATELET COUNT (AUTO) 137 K/uL (130-400); RED BLOOD CELL COUNT(AUTO) 2.21 MIL/uL (4.00-5.50); RED CELL DISTRIBUTION WIDTH 18.2 % (11.0-15.5)
[2020-01-02 05:48] LABS: HEMATOCRIT 20.4 % (36-48)
[2020-01-02] MEDS: LEVOTHYROXINE 75 MCG TABLET PO SCH (06:13)
[2020-01-02] MEDS: ZOSYN 3.375GM+NS 50ML 50 ML IV SCH ×3 (06:14→21:40)
[2020-01-02 06:31] LABS: CREATININE 0.4 mg/dL (0.5-1.5); MAGNESIUM 1.7 mg/dL (1.80-2.40); PHOSPHORUS 2.7 mg/dL (2.5-4.9)
[2020-01-02 07:56] VITALS: BP 115/91
[2020-01-02] MEDS: FOLIC ACID 0.8 MG PO SCH (09:00)
[2020-01-02] MEDS: BENAZEPRIL HCL 10 MG TABLET PO SCH (09:00)
[2020-01-02] MEDS: ESTROGEN CON PO SCH (09:00)
[2020-01-02] MEDS: M PROGEST ACET PO SCH (09:00)
[2020-01-02] MEDS: IRON SUCROSE COMPLEX 100 MG in SODIUM CHLORIDE 0.9% 50 ML IV SCH (09:48)
[2020-01-02] MEDS: ATORVASTATIN CALCIUM 40 MG TABLET PO SCH (09:49)
[2020-01-02] MEDS: GLUCOSAMINE-CHONDROITIN PO SCH (09:49)
[2020-01-02] MEDS: MULTIVITAMIN TABLET PO SCH (09:49)
[2020-01-02] MEDS: LORATADINE 10 MG TABLET PO SCH (09:49)
[2020-01-02] MEDS: CARVEDILOL 3.125 MG TABLET PO SCH ×2 (09:50→21:39)
[2020-01-02] MEDS: AMLODIPINE BESYLATE 5 MG TAB PO SCH (09:51)
[2020-01-02 10:58] VITALS: BP 107/48
[2020-01-02] MEDS ORDERED: SODIUM CHLORIDE 0.9% 250 ML IV ONE (14:06)
[2020-01-02] MEDS ORDERED: MAGNESIUM 2GM PREMIX 50ML 50 ML IV SCH (14:15)
[2020-01-02] MEDS: PANTOPRAZOLE 40 MG/VIAL IVP SCH (14:16)
[2020-01-02] MEDS: AMINOCAPROIC ACID 500 MG TABLET PO SCH ×4 (15:38→19:29)
[2020-01-02 16:27] VITALS: BP 115/54
[2020-01-02 18:53] LABS: HEMATOCRIT 24.4 % (36-48)
[2020-01-02 19:00] VITALS: BP 120/49
[2020-01-03] VITALS (7 sets, daily range): BP systolic 102–124; BP diastolic 56–60
[2020-01-03] MEDS: SODIUM CHLORIDE 0.9% 1000ML 1,000 ML IV SCH ×3 (00:30→20:25)
[2020-01-03 03:50] LABS: BASOPHILS % (AUTO) 0.3 % (0.0-5.0); EOSINOPHILS % (AUTO) 4.5 % (0.0-8.0); HEMATOCRIT 21.9 % (36-48); LYMPHOCYTES % (AUTO) 13.8 % (21.0-51.0); MEAN CORPUSCULAR HGB CONC 31.5 g/dL (32.0-36.0); MONOCYTES % (AUTO) 14.3 % (3.0-13.0); NUCLEATED RED BLOOD CELLS 1.6 % (0.0-0.19); PLATELET COUNT (AUTO) 137 K/uL (130-400); RED BLOOD CELL COUNT(AUTO) 2.38 MIL/uL (4.00-5.50); RED CELL DISTRIBUTION WIDTH 20.1 % (11.0-15.5); WHITE BLOOD COUNT (AUTO) 6.2 K/uL (4.8-10.8)
[2020-01-03 04:01] LABS: CREATININE 0.6 mg/dL (0.5-1.5); MAGNESIUM 1.8 mg/dL (1.80-2.40); PHOSPHORUS 3.4 mg/dL (2.5-4.9); POTASSIUM 3.5 mmol/L (3.5-5.1)
[2020-01-03] MEDS: ZOSYN 3.375GM+NS 50ML 50 ML IV SCH ×3 (05:06→20:25)
[2020-01-03] MEDS: VANCOMYCIN 1.25 GM in SODIUM CHLORIDE 0.9% 250 ML IV SCH ×2 (05:13→16:41)
[2020-01-03] MEDS: LEVOTHYROXINE 75 MCG TABLET PO SCH (06:32)
[2020-01-03] MEDS: FOLIC ACID 0.8 MG PO SCH (09:00)
[2020-01-03] MEDS: M PROGEST ACET PO SCH (09:00)
[2020-01-03] MEDS: ESTROGEN CON PO SCH (09:00)
[2020-01-03] MEDS: PANTOPRAZOLE 40 MG/VIAL IVP SCH ×2 (09:00→20:25)
[2020-01-03] MEDS: LORATADINE 10 MG TABLET PO SCH (09:01)
[2020-01-03] MEDS: AMLODIPINE BESYLATE 5 MG TAB PO SCH (09:01)
[2020-01-03] MEDS: MULTIVITAMIN TABLET PO SCH (09:01)
[2020-01-03] MEDS: BENAZEPRIL HCL 10 MG TABLET PO SCH (09:01)
[2020-01-03] MEDS: ATORVASTATIN CALCIUM 40 MG TABLET PO SCH (09:01)
[2020-01-03] MEDS: GLUCOSAMINE-CHONDROITIN PO SCH (09:01)
[2020-01-03] MEDS: CARVEDILOL 3.125 MG TABLET PO SCH ×2 (09:08→20:25)
[2020-01-04 04:00] VITALS: BP 118/64
[2020-01-04] MEDS: ZOSYN 3.375GM+NS 50ML 50 ML IV SCH (04:12)
[2020-01-04 04:23] LABS: BASOPHILS % (AUTO) 0.4 % (0.0-5.0); EOSINOPHILS % (AUTO) 2.5 % (0.0-8.0); HEMATOCRIT 25.3 % (36-48); MEAN CORPUSCULAR HEMOGLOBIN 30.1 pg (27.0-33.0); MEAN CORPUSCULAR HGB CONC 32.4 g/dL (32.0-36.0); MONOCYTES % (AUTO) 13.3 % (3.0-13.0); NEUTROPHILS % (AUTO) 70.2 % (40.0-77.0); NUCLEATED RED BLOOD CELLS 0.6 % (0.0-0.19); PLATELET COUNT (AUTO) 162 K/uL (130-400); RED BLOOD CELL COUNT(AUTO) 2.72 MIL/uL (4.00-5.50); RED CELL DISTRIBUTION WIDTH 19.9 % (11.0-15.5); WHITE BLOOD COUNT (AUTO) 6.9 K/uL (4.8-10.8)
[2020-01-04 04:47] LABS: ALBUMIN 2.2 g/dL (3.5-5.0); BILIRUBIN,TOTAL 0.3 mg/dL (0.2-1.0); CREATININE 0.6 mg/dL (0.5-1.5); MAGNESIUM 1.8 mg/dL (1.80-2.40); PHOSPHORUS 3.9 mg/dL (2.5-4.9); POTASSIUM 3.4 mmol/L (3.5-5.1); TOTAL PROTEIN, SERUM 4.2 g/dL (6.0-8.3)
[2020-01-04] MEDS: SODIUM CHLORIDE 0.9% 1000ML 1,000 ML IV SCH (04:53)
[2020-01-04] MEDS: VANCOMYCIN 1.25 GM in SODIUM CHLORIDE 0.9% 250 ML IV SCH (05:23)
[2020-01-04] MEDS: LEVOTHYROXINE 75 MCG TABLET PO SCH (05:26)
[2020-01-04] MEDS ORDERED: VWF IV SCH ×2 (06:00→13:00)
[2020-01-04] MEDS ORDERED: ANTIHEMOPHILIC FACTOR IV SCH ×2 (06:00→13:00)
[2020-01-04] MEDS ORDERED: PHARMACY COMMUNICATION MISC SCH (06:15)
[2020-01-04 07:45] VITALS: BP 113/61
[2020-01-04] MEDS: CARVEDILOL 3.125 MG TABLET PO SCH (08:35)
[2020-01-04] MEDS: GLUCOSAMINE-CHONDROITIN PO SCH (08:35)
[2020-01-04] MEDS: ATORVASTATIN CALCIUM 40 MG TABLET PO SCH (08:35)
[2020-01-04] MEDS: BENAZEPRIL HCL 10 MG TABLET PO SCH (08:35)
[2020-01-04] MEDS: AMLODIPINE BESYLATE 5 MG TAB PO SCH (08:36)
[2020-01-04] MEDS: MULTIVITAMIN TABLET PO SCH (08:36)
[2020-01-04] MEDS: LORATADINE 10 MG TABLET PO SCH (08:36)
[2020-01-04] MEDS: ESTROGEN CON PO SCH (08:42)
[2020-01-04] MEDS: M PROGEST ACET PO SCH (08:42)
[2020-01-04] MEDS: FOLIC ACID 0.8 MG PO SCH (08:42)
[2020-01-04] MEDS: PANTOPRAZOLE 40 MG/VIAL IVP SCH (09:31)
[2020-01-04] MEDS ORDERED: VANCOMYCIN 1GM+NS 250ML 250 ML IV SCH (11:00)
[2020-01-04 11:44] VITALS: BP 101/51
[2020-01-04] MEDS ORDERED: CEFDINIR 250MG/5ML 60ML BOTTLE PO SCH (12:00)
[2020-01-04 12:24] LABS: HEMATOCRIT 27.6 % (36-48)
[2020-01-04] MEDS ORDERED: POTASSIUM CHLORIDE 20 MEQ ERTAB PO SCH (13:20)
[2020-01-04] MEDS ORDERED: CEFD300C3 PO ×2 (13:32)
[2020-01-04 15:54] VITALS: BP 109/57
--- NOTE | 2020-01-04 16:06 | NUR ---
RD SCREEN - LOS X 7 Pt admitted with acute lower GI bleed, History of Von Willbrand disease. Pt tolerating Heart Healthy diet order with no report of GI distress, PO intake at 100%. Recommend Iron-Rich diet order RD to follow up with nutrition education RD to continue to monitor. Please notify as additional nutrition concerns arise. Thank you. Addendum: 01/04/20 at [address] RD Amended: Links added.
--- NOTE | 2020-01-04 16:30 | NUR ---
DR RUBIN AT BEDSIDE AND STATES OK TO DC PATIENT HOME
--- NOTE | 2020-01-04 18:35 | NUR ---
PATIENT BEING DISCHARGED HOME AT THIS TIME; PIV X2 AND TELEPACK REMOVED; NEW PRESCRIPTION SENT TO PATIENT PHARMACY; ALL DC INSTRUCTIONS GIVEN; PATIENT STATES SHE FULLY UNDERSTANDS AND HAS NO FURTHER QUESTIONS AT THIS TIME.
== END 2020-01-04 18:44 | disposition home or self-care (01) | DRG 378 ==
LOC: EDH 12:48 → EDHIP 14:16 → 4AH 17:42 → 4BH 12-31 17:20
PROVIDERS: ADMIT Hospitalist; ATTEND Hospitalist
PROC: 30233N1 Transfusion of Nonautologous Red Blood Cells into Peripheral Vein, Percutaneous Approach (ICD-10-PCS; principal; 2019-12-28)
DX: K92.2 Gastrointestinal hemorrhage, unspecified (principal); D68.0 Von Willebrand disease; D62 Acute posthemorrhagic anemia; J98.11 Atelectasis; Q27.30 Arteriovenous malformation, site unspecified; Z16.24 Resistance to multiple antibiotics; E03.9 Hypothyroidism, unspecified; E78.00 Pure hypercholesterolemia, unspecified; I10 Essential (primary) hypertension; Z88.8 Allergy status to other drugs, medicaments and biological substances; D69.6 Thrombocytopenia, unspecified; E83.42 Hypomagnesemia; Z96.659 Presence of unspecified artificial knee joint; Z96.649 Presence of unspecified artificial hip joint; Z82.0 Family history of epilepsy and other diseases of the nervous system; Z90.49 Acquired absence of other specified parts of digestive tract; Z68.24 Body mass index [BMI] 24.0-24.9, adult; Z88.1 Allergy status to other antibiotic agents
CPT/HCPCS: 36415; 36430; 71045; 78278; 80048; 80053; 80202; 81001; 82270; 82550; 82607; 82746; 83540; 83550; 83605; 83735; 83874; 84100; 84145; 84484; 85014; 85018; 85025; 85027; 85045; 85610; 85730; 86850; 86900; 86901; 86922; 87040; 87077; 87088; 87186; 93005; A9512; C9113; G0378; J0696; J1756; J2543; J3370; J3475; J7030; J7050; P9016; Q0163